=== PATIENT | female | born 1995 | race Caucasian/White ===

== ENCOUNTER → 2024-03-06 17:16 | Outpatient (CLI) | payer OTHER, SELFPAY ==
--- NOTE | 2024-03-06 17:25 | DI.RAD.S_ITS ---
PROCEDURE: XR ANKLE LT MIN 3V INDICATIONS: rolled ankle today. pain and swelling (lateral) TECHNIQUE: 3 views of the ankle were acquired. COMPARISON: None. FINDINGS: Bones: No fractures or dislocations. Ankle mortise is normally aligned. No suspicious bony lesions. Soft tissues: No tibiotalar joint effusion. Achilles tendon appears normal. IMPRESSION: Soft tissue swelling without acute osseous finding. Dictated by: Adam Leiva M.D. on 03/06/2024 at 17:16 Approved by: Adam Leiva M.D. on 03/06/2024 at 17:17
== END ==
PROVIDERS: Referring Provider Physician Assistant Medical; Visit Provider Physician Assistant Medical
DX: S93.402A Sprain of unspecified ligament of left ankle, initial encounter (principal); X58.XXXA Exposure to other specified factors, initial encounter; M79.89 Other specified soft tissue disorders
CPT/HCPCS: 73610